=== PATIENT | male | born 1935 | race Caucasian/White ===

== ENCOUNTER 2016-12-30 08:11 | Inpatient (IN) | payer OTHER, MEDICARE ==
[~2016-12-30] VITALS: Ht 175.3 cm; Wt 65.4 kg
--- NOTE | ~2016-12-30 | H ---
[facility] [place] [address] HISTORY AND PHYSICAL Name: GEORGE JAMES Room #: 210-P [facility] IN M.R.#: [id number] Admission: 12/30/16 Attend Phys: Sal Posey MD Discharge: Date of : 37 Report #: [id number] THIS REPORT FOR: //name// CC: Rich Posey DATE OF SERVICE: 12/30/2016 CHIEF COMPLAINT: Chest pain. HISTORY OF PRESENT ILLNESS: The patient is a 81-year-old male, who came to the ER with some left-sided chest pain that he had been having last night. It was intermittent, it is now gone. He had some nausea with it as well. He became short of air with activity. He does not have a history of prior LA, but he is diabetic and hypertensive and hyperlipidemic. He also takes aspirin daily. He had a stress test a couple years ago and a cath about 5 years ago. PAST MEDICAL HISTORY: Significant for: 1. Hypertension. 2. Hyperlipidemia. 3. Non-insulin diabetes mellitus. 4. Hiatal hernia. MEDICATIONS: Aspirin 81 mg a day, lisinopril 10 mg a day, Bystolic 5 mg a day, metformin 500 mg b.i.d., lovastatin 40 mg a day, Zyrtec 10 mg a day, Naprosyn p.r.n. ALLERGIES: No known drug allergies. SOCIAL HISTORY: Nonsmoker, occasional drinker. REVIEW OF SYSTEMS: CONSTITUTIONAL: No fever or chills. HEENT: No headaches or visual changes. CHEST: Per above. No cough or sputum induction. GASTROINTESTINAL: Nausea. No vomiting or diarrhea. GENITOURINARY: No burning or frequency. EXTREMITIES: No new complaints. PHYSICAL EXAMINATION: VITAL SIGNS: Blood pressure 109/64, pulse is 53, respiratory rate is 18. He is afebrile. GENERAL: He is awake and alert, in no acute distress. He has no chest pain at this time. HEENT: His mucous membranes are moist. NECK: Supple, no adenopathy, thyromegaly or bruits. [facility] [address] [place] [address] HISTORY AND PHYSICAL Name: GEORGE JAMES Sumaya Room #: 210-P [facility] IN ..#: [id number] Admission: 12/30/16 Attend Phys: Sal Posey MD Discharge: Date of : 37 Report #: [id number] CHEST: Clear to auscultation. CARDIOVASCULAR: Regular, without murmur. ABDOMEN: Soft, no masses. Bowel sounds are active. EXTREMITIES: Show no edema. Pulses are intact. SKIN: Intact. NEUROLOGIC: Motor and sensory are intact. EKG: Sinus rhythm, rate of 62, no ST segment changes. PRELIMINARY LABS: His creatinine is 2.2, WBCs are 7.1, hemoglobin 12.4, hematocrit 36.5, platelet count 202, sodium 139, potassium 5.4, chloride 108, BUN 44, again creatinine 2.2, glucose 109, troponin less than 0.04. ASSESSMENT AND PLAN: Chest pain, certainly concerning with his wrist fractures, but with his elevated creatinine it is difficult to take him through the cath. We will monitor serial enzymes. We will start him on some IV fluids and we will recheck in the morning. I have consulted cardiology, planning a stress echo tomorrow morning. Resume his home meds except for the metformin. By: 0959 1312 Sal Posey MD /nt
--- NOTE | ~2016-12-30 | EKG ---
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
--- NOTE | ~2016-12-30 | 2DMMODE ---
[facility] [place] [address] 2 D/M-MODE ECHOCARDIOGRAM Name: JAMESGEORGE Room #: 210-P [facility] IN ..#: [id number] Admission: 12/30/16 Attend Phys: Sal Posey, Discharge: Date of : 37 Date of Service: 12/30/16 1702 Report #: [id number] THIS REPORT FOR: //name// APPROVED REPORT Study performed: 12/30/2016 15:13:20 EXAM: Comprehensive 2D, Doppler, and color-flow Echocardiogram Patient Location: Echo lab Room #: 210 Blood Pressure: 139/49 mmHg HR: 59 bpm Rhythm: NSR Other Information Study Quality: Adequate/Fair parasternal window. Indications Chest Pain Hx: HTN, HLP, DM 2D Dimensions RVDd: 32.41 mm LVEF(%): 65.67 (>50%) IVSd: 10.92 (7-11mm) LVOT Diam: 19.98 (18-24mm) LVDd: 51.60 mm PWd: 10.41 (7-11mm) Ascending Ao: 34.05 (22-36mm) LVDs: 32.86 (25-40mm) Aortic Root: 37.32 mm Brown's LVEF: 65.67 % Volumes Left Atrial Volume (Systole) Single Plane 4CH: 43.83 mL Single Plane 2CH: 51.94 mL LA ESV Index: 27.00 mL/m2 Aortic Valve AoV Peak Wilton.: 2.25 m/s AO Peak Gr.: 20.28 mmHg LVOT Max P.06 mmHg AO Mean Gr.: 10.97 mmHg AO V2 Mean: 1.58 m/s LVOT Max V: 1.01 m/s AO V2 VTI: 56.87 cm PHI Vmax: 1.40 cm2 [facility] [place] [address] 2 D/M-MODE ECHOCARDIOGRAM Name: GEORGE JAMES Room #: 210-P [facility] IN ..#: [id number] Admission: 12/30/16 Attend Phys: Sal Posey, Discharge: Date of : 37 Date of Service: 12/30/16 1702 Report #: [id number] Vmax: 4.22 m/s AI Jenkins: 2.84 m/s2 AI PHT: 430.74 ms Mitral Valve E/A Ratio: 0.6 MV Decel. Time: 260.60 ms MV E Max Wilton.: 0.71 m/s MV A Wilton.: 1.16 m/s MV PHT: 75.58 ms Pulmonary Valve PV Peak Wilton.: 0.96 m/s PV Peak Gr.: 3.72 mmHg Pulmonary Vein P Vein S: 0.66 m/s P Vein A: 0.34 m/s P Vein D: 0.33 m/s P Vein A Dur.: 106.1 msec P Vein S/D Ratio: 2.00 Tricuspid Valve TR Peak Wilton.: 2.43 m/s RAP Estimate: 5.00 mmHg TR Peak Gr.: 23.70 mmHg RVSP: 29.00 mmHg Left Ventricle The left ventricle is normal size. Hypokinesis involving base of inferior wall There is normal left ventricular wall thickness. Left ventricular systolic function is normal. LVEF is 50-55%. Grade I - abnormal relaxation pattern. Right Ventricle The right ventricle is normal size. The right ventricular systolic function is normal. Atria The left atrium size is normal. The right atrium size is normal. Aortic Valve Aortic valve is moderately calcified. The aortic valve is not well visualized. Mild to moderate aortic regurgitation. Mild aortic stenosis. Mitral Valve Mild mitral annular calcification. Mild mitral regurgitation. No evidence of mitral valve stenosis. [facility] [address] [place] [address] 2 D/M-MODE ECHOCARDIOGRAM Name: GEORGE JAMES Room #: 210-P [facility] IN [facility]#: [id number] Admission: 12/30/16 Attend Phys: Sal Posey, Discharge: Date of : 37 Date of Service: 12/30/16 1702 Report #: [id number] Tricuspid Valve The tricuspid valve is normal in structure. There is trace tricuspid regurgitation. The right atrial pressure is estimated at 5 mmHg. Estimated PAP is 29mmHg. Pulmonic Valve The pulmonary valve is normal in structure. Trace pulmonic regurgitation. Great Vessels Aortic root is borderline dilated. The ascending aorta is normal in size. IVC is normal in size and collapses >50% with inspiration. Pericardium There is no pericardial effusion. <Conclusion> Left ventricular systolic function is normal. Hypokinesis involving base of inferior wall LVEF is 50-55%. Grade I diastolic dysfunction Aortic valve is moderately calcified. The aortic valve is not well visualized. Mild to moderate aortic regurgitation. Mild aortic stenosis. Mild mitral annular calcification. Trace mitral insufficiency Pulmonary artery pressure could not be reliably ascertained There is no pericardial effusion. <ELECTRONICALLY SIGNED> By: Raghavendra Escudero MD, FACC 12/30/161701 01 01 Raghavendra Escudero MD, FACC /INF
[~2016-12-30 08:11] MED LIST: ALEVE220 MG PO; ASPIRIN325 PO; BYSTOLIC 5 MG5 M1 PO; GLUCOPHAGE500 MG PO; LIPITOR10 MG PO; LISINOPRIL10 MG PO; LOVASTATIN 20 M20 MG PO; METFORMIN HCL500 MG PO; MULTIVITAMINS PO; NABUMETONE 500500 M1 PO; OMEPRAZOLE40 MG PO; ZYRTEC10 MG PO
[2016-12-30 08:19] VITALS: BP 109/64
[2016-12-30] MEDS ORDERED: ASPIR 8181 MG PO (08:22)
[2016-12-30 08:37] LABS: ABSOLUTE NEUTROPHILS 3.7 thou/uL (1.4-8.2); BASOPHILS 2.5 % (0.0-2.0); EOSINOPHILS 18.8 % (0.0-3.0); HEMATOCRIT 36.5 % (42.0-52.0); HEMOGLOBIN 12.4 gm/dL (14.0-18.0); LYMPHOCYTES 16.8 % (24.0-44.0); MCH 30.3 pg (26.0-34.0); MCHC 33.9 g/dL (28.0-37.0); MCV 89.3 fL (80.0-100.0); MONOCYTES 9.7 % (1.0-8.0); PLATELET COUNT 202 thou/uL (150-400); POLYS 52.2 % (36.0-66.0); RBC 4.08 mil/uL (4.50-6.00); WBC 7.1 thou/uL (4.0-11.0)
[2016-12-30 08:40] LABS: MANUAL DIFF NO
[2016-12-30 08:48] LABS: ANION GAP 8 mmol/L (7-16); BUN 44 mg/dL (7-18); CALCIUM 9.1 mg/dL (8.5-10.1); CHLORIDE 108 mmol/L (98-107); CO2 23 mmol/L (21-32); CREATININE 2.2 mg/dL (0.7-1.3); GLUCOSE 109 mg/dL (74-106); POTASSIUM 5.4 mmol/L (3.5-5.1); SODIUM 139 mmol/L (136-145)
[2016-12-30 08:59] LABS: TROPONIN-I < 0.04 ng/mL (<0.04-0.07)
[2016-12-30 09:56] VITALS: BP 126/55
[2016-12-30 10:16] VITALS: BP 139/49
[2016-12-30 16:42] VITALS: BP 142/48
[2016-12-30 19:39] VITALS: BP 143/64
[2016-12-30 23:14] VITALS: BP 120/58
[2016-12-31 03:59] LABS: CALCIUM 8.6 mg/dL (8.5-10.1); CREATININE 1.9 mg/dL (0.7-1.3); POTASSIUM 4.8 mmol/L (3.5-5.1)
[2016-12-31 04:05] LABS: CHOLESTEROL 139 mg/dL (<200); HDL CHOLESTEROL 35 mg/dL (>40); LDL CHOLESTEROL 74 mg/dL (<100); TRIGLYCERIDE 153 mg/dL (<150); VLDL 31 mg/dL (<40)
[2016-12-31 04:06] LABS: SERUM ASSESSMENT Clear
[2016-12-31 04:14] VITALS: BP 144/61
[2016-12-31 08:00] VITALS: BP 147/70
[2016-12-31 09:34] VITALS: BP 147/70
== END 2016-12-31 09:50 | disposition home or self-care (01) | DRG 392 ==
LOC: ER 08:11 → 2N 09:30 → EROBS 09:30 → 2N 09:59
PROVIDERS: Emergency Medicine; Family Medicine; Internal Medicine Cardiovascular Disease
DX: K21.9 Gastro-esophageal reflux disease without esophagitis (principal); N17.9 Acute kidney failure, unspecified; R07.9 Chest pain, unspecified; E11.22 Type 2 diabetes mellitus with diabetic chronic kidney disease; I12.9 Hypertensive chronic kidney disease with stage 1 through stage 4 chronic kidney disease, or unspecified chronic kidney disease; E78.5 Hyperlipidemia, unspecified; N18.9 Chronic kidney disease, unspecified; Z79.82 Long term (current) use of aspirin; Z79.899 Other long term (current) drug therapy; Z87.11 Personal history of peptic ulcer disease
CPT/HCPCS: 10081

== ENCOUNTER 2017-09-14 15:32 | Inpatient (IN) | payer OTHER, MEDICARE ==
[~2017-09-14 15:32] MED LIST changes: +ASPIR 8181 MG PO
[2017-09-14 16:53] LABS: HEMATOCRIT 33.7 % (42.0-52.0); HEMOGLOBIN 11.4 gm/dL (14.0-18.0); MCH 30.6 pg (26.0-34.0); RBC 3.74 mil/uL (4.50-6.00); RDW 13.3 % (10.5-14.5); WBC 7.5 thou/uL (4.0-11.0)
[2017-09-14 17:08] VITALS: BP 157/70
[2017-09-14 17:17] LABS: APTT 27.8 Seconds (24.5-32.8); D-DIMER 4.15 ug/mLFEU (0.19-0.50); INR 1.1
[2017-09-14 17:34] LABS: CALCIUM 8.7 mg/dL (8.5-10.1); POTASSIUM 4.1 mmol/L (3.5-5.1)
[2017-09-14 20:18] VITALS: BP 166/75
[2017-09-15 03:21] VITALS: BP 145/72
[2017-09-15 07:29] VITALS: BP 143/68
[2017-09-15 15:27] VITALS: BP 130/70
[2017-09-15 20:35] VITALS: BP 145/68
[2017-09-16 04:45] VITALS: BP 143/69
[2017-09-16 12:00] VITALS: BP 131/63
[2017-09-16] MEDS ORDERED: XARELTO15 MG PO (12:16)
[2017-09-16 12:59] VITALS: BP 143/68
[2018-03-21] MEDS ORDERED: LOVASTATIN 20 M20 MG PO (15:04)
[2018-03-21] MEDS ORDERED: PREDNISONE 20 M20 MG PO (15:05)
== END 2017-09-16 13:20 | disposition home or self-care (01) | DRG 300 ==
LOC: 2N 15:32 → ENTRNSPT 09-16 13:06 → EDTRNSPTSTS 09-16 13:19 → 2N 09-16 13:20
PROVIDERS: Nurse Practitioner Adult Health
DX: I82.431 Acute embolism and thrombosis of right popliteal vein (principal); I42.9 Cardiomyopathy, unspecified; I25.10 Atherosclerotic heart disease of native coronary artery without angina pectoris; I35.0 Nonrheumatic aortic (valve) stenosis; I10 Essential (primary) hypertension; E78.5 Hyperlipidemia, unspecified; Z90.49 Acquired absence of other specified parts of digestive tract
CPT/HCPCS: 10797

== ENCOUNTER → 2018-01-26 | Outpatient (CLI) | payer OTHER, MEDICARE ==
[~2018-01-26] MED LIST changes: +XARELTO15 MG PO
== END ==
LOC: ULTRA 14:47
DX: M79.605 Pain in left leg (principal); R60.0 Localized edema

== ENCOUNTER 2018-03-13 01:35 | Inpatient (IN) | payer OTHER, MEDICARE ==
[~2018-03-13] VITALS: Ht 175.3 cm; Wt 72.5 kg
[2018-03-13] VITALS (7 sets, daily range): BP systolic 141–176; BP diastolic 74–93
--- NOTE | ~2018-03-13 | EKG ---
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 : 1935 Requested By: Sal Posey Order Number: [id number] MD: Raghavendra Escudero Measurements Intervals [place] Rate: 101 P: 69 [place]: 188 QRS: 39 QRSD: 105 T: 208 QT: 358 QTc: 465 Interpretive Statements Sinus tachycardia Inferior infarct, old ST and T wave abnormality, consider lateral ischemia versus repolarization abnormality No previous ECGs available for comparison Electronically Signed On 03-13-2018 13:56:41 CDT by Raghavendra Escudero [email or web address] <ELECTRONICALLY SIGNED> By: Raghavendra Escudero MD, [facility] 03/13/18 1356 4 4 Raghavendra Escudero MD, [facility] /EPI
--- NOTE | ~2018-03-13 | HC ---
[facility] [place] [address] CONSULTATION Name: GEORGE JAMES Room #: [facility] IN M.R.#: [id number] Admission: 03/13/18 Attend Phys: Sal Posey MD Discharge: Date of : 37 Report #: [id number] THIS REPORT FOR: //name// CC: Norma Posey CHIEF COMPLAINT: Left hydronephrosis. HISTORY OF PRESENT ILLNESS: The patient is a very pleasant 82-year-old gentleman who is being seen today at the request of Dr. Posey and Dr. Darby for left hydronephrosis. He presented to the hospital with shortness of breath and was noted to have an elevated creatinine. He denies urgency, frequency or dysuria. Upon reviewing the record, there are reports of bladder tumor resections x 3; however, he denies any knowledge of this. He denies difficulties voiding at the present time. ALLERGIES: None. ILLNESSES: Diabetes, hyperlipidemia, coronary artery disease, DVT, possible bladder tumor, chronic kidney disease. SOCIAL HISTORY: Former smoker. No alcohol. FAMILY HISTORY: Parents had coronary artery disease. HOME MEDICATIONS: Metformin, lisinopril, Bystolic, lovastatin, Pepcid. REVIEW OF SYSTEMS: He denies shortness of breath or chest pain. PHYSICAL EXAMINATION: GENERAL: He is a comfortable appearing gentleman, lying in bed. VITAL SIGNS: Temperature 36.4, pulse 68, respirations 18, blood pressure 121/61. There is no respiratory distress. ABDOMEN: Soft, without masses. GENITOURINARY: He has a normal circumcised phallus with no acute scrotal pathology. LABORATORY DATA: White count 11,400, hemoglobin is 12.1, hematocrit is 35.8, platelets 257,000. Sodium 137, potassium 3.9, chloride 99, CO2 of 26, BUN 71, creatinine 3.6, glucose 171. Urine is clear, yellow, specific gravity is 1.010, pH is 5. Microscopic, 11-20 red cells, 0-5 white cells. Renal ultrasound shows moderate left hydronephrosis with normal echogenicity of renal parenchyma. IMPRESSION: Left hydronephrosis, microhematuria. PLAN: Obtain a noncontrast CT scan to see if further history could be obtained [address] [address] CONSULTATION Name: GEORGE JAMES Room #: 205-P [facility] IN .R.#: [id number] Admission: 03/13/18 Attend Phys: Sal Posey MD Discharge: Date of : 37 Report #: [id number] from the family. We will follow with you. Also, we will check postvoid residual. <ELECTRONICALLY SIGNED> By: Real Adam MD 03/16/18 0645 0730 0919 Real Adam MD /nt
--- NOTE | ~2018-03-13 | HC ---
[facility] [place] [address] CONSULTATION Name: GEORGE JAMES Sumaya Room #: 205-P [facility] IN .R.#: [id number] Admission: 03/13/18 Attend Phys: Sal Posey MD Discharge: Date of : 37 Report #: [id number] THIS REPORT FOR: //name// CC: Norma Posey DATE OF SERVICE: 03/13/2018 HISTORY OF PRESENT ILLNESS: The patient is an 82-year-old gentleman who is a patient of deanne Posey and Aminata. He has a history of coronary artery disease with mild left ventricular dysfunction with an ejection fraction of 45%-50%. His history also includes diabetes, mild aortic stenosis, hypertension, dyslipidemia, prior DVT for which he is anticoagulated with Xarelto and advanced kidney disease. The patient now presents with increasing shortness of breath and lower extremity edema. He reports orthopnea and paroxysmal nocturnal dyspnea all over the past day or so. No chest heaviness or pressure. He presented to the Emergency Department where he was found to be in congestive heart failure. No history of palpitations. Denies bleeding problems with Xarelto. His coronary artery disease is notable for mild calcification of the LAD and circumflex with a 40-50% ostial LAD stenosis. The right coronary is occluded and filled by collateralization and moderate disease in the marginal branch, which is nondominant. Due to advancing kidney failure, he has an appointment with a electric accounting machine operator this upcoming Wednesday. MEDICATIONS: Include metformin 500 mg daily, aspirin 81 mg daily, Pepcid 20 mg daily, lisinopril 10 mg daily, Bystolic 10 mg daily, lovastatin 20 mg daily. PAST MEDICAL HISTORY: His past history and medical records have been reviewed, include history of prior tobacco dependency, coronary artery disease, mild ischemic cardiomyopathy, mild aortic stenosis, dyslipidemia, hypertension. SOCIAL HISTORY: He is a former smoker. . FAMILY HISTORY: Notable for parents with coronary artery disease. REVIEW OF SYSTEMS: All systems negative except as that noted above. PHYSICAL EXAMINATION: GENERAL: Reveals a pleasant gentleman, in moderate distress. VITAL SIGNS: Blood pressure is 166/82, heart rate 90 and regular. He is afebrile, 5 feet 9 inches tall, 166 pounds. His weight in August was 155 pounds. HEENT: There are neither xanthelasma, subcutaneous xanthomata, oral mucosal or [facility] [address] [place] [address] CONSULTATION Name: GEORGE JAMES Room #: 205-P [facility] IN [facility]#: [id number] Admission: 03/13/18 Attend Phys: Sal Posey MD Discharge: Date of : 37 Report #: [id number] digital cyanosis or kyphoscoliosis present. CHEST: Reveals diffuse rales with a prolonged expiratory phase. CARDIAC: Distant regular rate and rhythm with a 1-2/6 systolic ejection murmur at the base. ABDOMEN: Soft and nontender. EXTREMITIES: With 1+ edema. Radial pulses are 2+. NEUROLOGIC: He is alert with a nonfocal exam. LABORATORY DATA: Sodium 140, potassium 4.8, creatinine 2.6. ProBNP of 1930. Troponin is 0.08. White count 11.4, hemoglobin 12, hematocrit 35, platelet count 257. Chest x-ray demonstrates congestive heart failure. EKG, sinus rhythm, LVH with repolarization abnormality. IMPRESSION: 1. Hffwp-et-afisuak diastolic heart failure. Ejection fraction 45-50%. 2. Acute kidney injury on chronic kidney disease, stage 3-4. 3. Diabetes. 4. History of deep venous thrombosis. 5. Coronary artery disease. 6. Szhq-bv-ocsczxrc aortic stenosis. 7. Hypertension. 8. Hypercoagulable. RECOMMENDATIONS: 1. IV Lasix. 2. Echocardiogram with Doppler. 3. Renal ultrasound, postvoid residual. Renal consultation. 4. Salt restricted diet recommended. Further thoughts will be forthcoming based on this evaluation. Thank you for asking me to participate in this patient's care. <ELECTRONICALLY SIGNED> By: Raghavendra Escudero MD, FACC 03/15/18 1257 0837 1355 Raghavendra Escudero MD, FACC /nt
--- NOTE | ~2018-03-13 | HC ---
[facility] [place] [address] CONSULTATION Name: GEORGE JAMES Room #: 205-P [facility] IN M.R.#: [id number] Admission: 03/13/18 Attend Phys: Sal Posey MD Discharge: Date of : 37 Report #: [id number] THIS REPORT FOR: //name// CC: Norma Posey REASON FOR CONSULTATION: Acute kidney injury. REASON FOR PRESENTATION: Shortness of breath. HISTORY OF PRESENT ILLNESS: An 82-year-old with past medical history of coronary artery disease, hypertension, hyperlipidemia, diabetes mellitus, DVT. He presented with shortness of breath that began abruptly while asleep. This was associated with cough and chest pain. He describes the chest pain as midsternal. He denies any associated fever or chills. No diaphoresis associated with his presentation. He came to further evaluate his symptoms and was admitted accordingly. He has history of bladder tumor resection x 3. When he presented yesterday, he was found to have an elevated creatinine with what seems to be pulmonary edema on the chest x-ray. Diuresis was begun. I am being asked to evaluate his chronic kidney disease. He was noticed also to have hydronephrosis. He was on lisinopril. He was taking almost every other day doses of nonsteroidal anti-inflammatory medications in the form of Aleve. PAST MEDICAL HISTORY: 1. Diabetes mellitus. 2. Hyperlipidemia. 3. Coronary artery disease. 4. DVT. 5. Bladder tumor resection x 3. 6. Chronic kidney disease. SOCIAL HISTORY: Former smoker. No drug or alcohol abuse. FAMILY HISTORY: Parents with coronary artery disease. MEDICATIONS: 1. Metformin. 2. Lisinopril. 3. Bystolic. 4. Lovastatin. 5. Pepcid. Of note is the fact that he was recently seen by his bonding machine setter, and there had been some changes of his medications including holding his lisinopril, metformin, Demadex. REVIEW OF SYSTEMS: [facility] [address] [place] [address] CONSULTATION Name: GEORGE JAMES Room #: 205-[facility] IN ..#: [id number] Admission: 03/13/18 Attend Phys: Sal Posey MD Discharge: Date of : 37 Report #: [id number] GENERAL: No fever or chills. CARDIOVASCULAR: As per the history of present illness. PULMONARY: No cough or hemoptysis, but significant for shortness of breath. GASTROINTESTINAL: No nausea or vomiting. GENITOURINARY: No frequency, no urgency. MUSCULOSKELETAL: No back pain, no morning stiffness: PHYSICAL EXAMINATION: GENERAL: Alert, oriented, in no apparent distress. VITAL SIGNS: Temperature 36.4, blood pressure 128/62. HEAD AND NECK: No jugular venous distention, no bruit, no thyromegaly. CHEST: Decreased air entry bilaterally. CARDIOVASCULAR: No rub detected. ABDOMEN: Soft, nontender. LOWER EXTREMITIES: No edema. LABORATORY DATA: Reviewed. Creatinine is up to 3.2, repeat is down to 3.1. Creatinine from yesterday was 2.6. Most recent creatinine in 2017 was in the 1.9-2.0 range. No UA is available. Chest x-ray reviewed. There is mild pulmonary edema. Ultrasound reviewed, mild hydronephrosis. ASSESSMENT, IMPRESSION AND PLAN: 1. Acute kidney injury. 2. Chronic kidney disease. 3. Coronary artery disease. 4. Hypertension. 5. Aortic stenosis. 6. Volume status is much better. We will discontinue the Lasix drip. 7. He has so many confounding issues contributing to his acute kidney injury including nonsteroidal anti-inflammatory medications usage, hydronephrosis on the left side. 8. I agree with the urology consultation given his bladder tumor history. 9. Initiate chronic kidney disease workup as he was supposed to see Dr. Steen in the next few days. 10. Continue to hold metformin, torsemide, angiotensin converting enzyme inhibitor at this point. 11. Cardiac workup in progress. 12. Avoid nonsteroidal anti-inflammatory medications. 13. We will continue to follow along. By: 0928 1314 Kailey Leal MD /nt
--- NOTE | ~2018-03-13 | EKG ---
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 : 1935 Requested By: Sal Posey Order Number: [id number] MD: Raghavendra Escudero Measurements Intervals [place] Rate: 82 P: 32 [place]: 191 QRS: 12 QRSD: 101 T: 179 QT: 387 QTc: 452 Interpretive Statements Sinus rhythm LVH with secondary repolarization abnormality Inferior infarct, old Compared to ECG 03/13/2018 01:49:13 No significant changes Electronically Signed On 03-14-2018 8:18:45 CDT by Raghavendra Escudero [email or web address] <ELECTRONICALLY SIGNED> By: Raghavendra Escudero MD, [facility] 03/14/18 0818 0 0 Raghavendra Escudero MD, [facility] /EPI
--- NOTE | ~2018-03-13 | EKG ---
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 : 1935 Requested By: Jeffery Clarke Order Number: [id number] MD: Raghavendra Escudero Measurements Intervals [place] Rate: 90 P: 59 TN: 210 QRS: 25 QRSD: 101 T: 184 QT: 376 QTc: 460 Interpretive Statements Sinus rhythm Probable LVH with secondary repol abnrm Inferior infarct, old Compared to ECG 12/30/2016 08:24:13 Repolarization abnormality is more pronounced Electronically Signed On 03-13-2018 13:52:30 CDT by Raghavendra Escudero [email or web address] <ELECTRONICALLY SIGNED> By: Raghavendra Escudero MD, [facility] 03/13/18 1352 0149 0149 Raghavendra Escudero MD, [facility] /EPI
--- NOTE | ~2018-03-13 | 2DMMODE ---
[facility] [place] [employer] [place] [address] 2 D/M-MODE ECHOCARDIOGRAM Name: GEORGE JAMES Room #: 205-P [facility] IN ..#: [id number] Admission: 03/13/18 Attend Phys: Sal Posey, Discharge: Date of : 39 Date of Service: 03/14/18 1249 Report #: [id number] THIS REPORT FOR: //name// APPROVED REPORT Study performed: 03/14/2018 09:37:22 EXAM: Comprehensive 2D, Doppler, and color-flow Echocardiogram Patient Location: Echo lab Room #: [facility] Status: routine BSA: 1.88 HR: 75 bpm BP: 128/62 mmHg Rhythm: NSR Other Information Study Quality: Adequate Indications Short of breath, CHF. Hx: CAD, HTN, HLP, DM 2D Dimensions RVDd: 28.56 mm LVEF(%): 43.94 (>50%) IVSd: 13.87 (7-11mm) LVOT Diam: 21.33 (18-24mm) LVDd: 45.54 mm PWd: 10.06 (7-11mm) Ascending Ao: 34.03 (22-36mm) LVDs: 35.69 (25-40mm) Aortic Root: 35.77 mm Brown's LVEF: 43.94 % Volumes Left Atrial Volume (Systole) Single Plane 4CH: 34.11 mL Single Plane 2CH: 58.90 mL LA ESV Index: 26.00 mL/m2 Aortic Valve AoV Peak Wilton.: 2.38 m/s AO Peak Gr.: 22.63 mmHg LVOT Max P.01 mmHg AO Mean Gr.: 12.48 mmHg AO V2 Mean: 1.68 m/s LVOT Max V: 1.00 m/s AO V2 VTI: 43.48 cm PHI Vmax: 1.50 cm2 AI Vmax: 4.14 m/s AI Parmer: 2.58 m/s2 [facility] [place] [address] 2 D/M-MODE ECHOCARDIOGRAM Name: GEORGE JAMES Room #: 205-[facility].#: [id number] Admission: 03/13/18 Attend Phys: Sal Posey, Discharge: Date of : 39 Date of Service: 03/14/18 1249 Report #: [id number] AI PHT: 464.66 ms Mitral Valve E/A Ratio: 0.6 MV Decel. Time: 212.93 ms MV E Max Wilton.: 0.43 m/s MV A Wilton.: 0.78 m/s MV PHT: 61.75 ms IVRT: 101.50 ms Pulmonary Valve PV Peak Wilton.: 1.01 m/s PV Peak Gr.: 4.08 mmHg Pulmonary Vein P Vein S: 0.49 m/s P Vein D: 0.26 m/s P Vein S/D Ratio: 1.88 Tricuspid Valve TR Peak Wilton.: 2.23 m/s RAP Estimate: 5.00 mmHg TR Peak Gr.: 19.94 mmHg Left Ventricle The left ventricle is normal size. Mild septal hypertrophy is present. Left ventricular systolic function is mildly decreased. LVEF is 45%. Hypokinesis involving base of inferolateral and inferior richardson Mild diastolic dysfunction is present (impaired relaxation pattern). Right Ventricle The right ventricle is normal size. The right ventricular systolic function is normal. Atria The left atrium size is normal. The right atrium size is normal. Aortic Valve Aortic valve is moderately calcified. Mild to moderate aortic regurgitation. There is mild valvular aortic stenosis. Calculated aortic valve area is 1.5 cm2 with maximum pressure gradient of 23 mmHg and mean pressure gradient of 13 mmHg. Mitral Valve The mitral valve is normal in structure. Mild mitral regurgitation. No evidence of mitral valve stenosis. [facility] [address] [place] [address] 2 D/M-MODE ECHOCARDIOGRAM Name: GEORGE JAMES Room #: 205-P [facility] IN .R.#: [id number] Admission: 03/13/18 Attend Phys: Sal Posey, Discharge: Date of : 39 Date of Service: 03/14/18 1249 Report #: [id number] Tricuspid Valve The tricuspid valve is normal in structure. Trace tricuspid regurgitation. Estimated PAP is 25mmHg. Pulmonic Valve Pulmonic valve is not well visualized. Trace pulmonic regurgitation. Great Vessels The aortic root is normal in size. The ascending aorta is normal in size. IVC is normal in size and collapses >50% with inspiration. Pericardium There is no pericardial effusion. <Conclusion> Left ventricular systolic function is mildly decreased. LVEF is 45%. Hypokinesis involving base of inferolateral and inferior richardson Mild diastolic dysfunction is present (impaired relaxation pattern). Aortic valve is moderately calcified. Mild valvular aortic stenosis, mild-moderate insufficiency. Calculated aortic valve area is 1.5 cm2 with maximum pressure gradient of 23 mmHg and mean pressure gradient of 13 mmHg. The mitral valve is normal in structure. Mild mitral regurgitation. Trace tricuspid regurgitation. Estimated pulmonary artery pressure of 25mmHg. There is no pericardial effusion. <ELECTRONICALLY SIGNED> By: Raghavendra Escudero MD, FACC 03/14/18 1249 1249 1249 Raghavendra Escudero MD, FACC /INF
--- NOTE | ~2018-03-13 | EKG ---
[address] [place] [address] ELECTROCARDIOGRAM REPORT Name: GEORGE JAMES Room #: 205-P ADM IN M.R.#: [id number] Admission: 03/13/18 Attend Phys: Sal Posey MD Discharge: Date of : 39 Report #: [id number] THIS REPORT FOR: //name// [facility] Test Date: 2018-03-13 Test Time: 07:48:01 Pat Name: GEORGE JAMES Department: Room: [facility] Gender: M Cardiac Cath Technologist: PAOLO : 1935 Requested By: Jeffery Clarke Order Number: [id number] MD: Raghavendra Escudero Measurements Intervals [place] Rate: 104 P: 112 TN: 179 QRS: 154 QRSD: 106 T: -9 QT: 354 QTc: 466 Interpretive Statements Limb lead reversal recommend repeat tracing Sinus tachycardia Electronically Signed On 03-13-2018 13:55:00 CDT by Raghavendra Escudero [email or web address] <ELECTRONICALLY SIGNED> By: Raghavendra Escudero MD, [facility] 03/13/18 1355 0748 0748 Raghavendra Escudero MD, FACC /EPI
[2018-03-13] MEDS ORDERED: PEPCID20 MG PO (01:51)
[2018-03-13 02:01] LABS: ABSOLUTE NEUTROPHILS 7.1 thou/uL (1.4-8.2); BASOPHILS 2.1 % (0.0-2.0); EOSINOPHILS 12.1 % (0.0-3.0); HEMATOCRIT 35.8 % (42.0-52.0); HEMOGLOBIN 12.1 gm/dL (14.0-18.0); LYMPHOCYTES 17.5 % (24.0-44.0); MCH 30.1 pg (26.0-34.0); MCHC 33.7 g/dL (28.0-37.0); MCV 89.2 fL (80.0-100.0); MONOCYTES 5.5 % (1.0-8.0); PLATELET COUNT 257 thou/uL (150-400); POLYS 62.8 % (36.0-66.0); RBC 4.01 mil/uL (4.50-6.00); RDW 14.1 % (10.5-14.5); WBC 11.4 thou/uL (4.0-11.0)
[2018-03-13 02:05] LABS: CALCIUM 8.9 mg/dL (8.5-10.1); CREATININE 2.6 mg/dL (0.7-1.3); POTASSIUM 4.8 mmol/L (3.5-5.1)
[2018-03-13 02:13] LABS: ALBUMIN 3.8 g/dL (3.4-5.0); TOTAL BILIRUBIN 0.6 mg/dL (<0.1-1.0); TOTAL PROTEIN 8.1 g/dL (6.4-8.2); TROPONIN-I 0.08 ng/mL (<0.06)
[2018-03-13 03:19] LABS: INR 1.1; PROTIME 11.7 Seconds (9.3-11.4)
[2018-03-14 00:06] VITALS: BP 123/57
[2018-03-14 03:47] LABS: ALBUMIN 4.1 g/dL (3.4-5.0); CALCIUM 9.5 mg/dL (8.5-10.1); CREATININE 3.2 mg/dL (0.7-1.3); PHOSPHORUS 4.2 mg/dL (2.5-4.9); POTASSIUM 4.2 mmol/L (3.5-5.1)
[2018-03-14 03:53] VITALS: BP 111/60
[2018-03-14 08:14] VITALS: BP 128/62
[2018-03-14 08:34] LABS: CREATININE 3.1 mg/dL (0.7-1.3); POTASSIUM 4.4 mmol/L (3.5-5.1)
[2018-03-14 11:04] VITALS: BP 125/56
[2018-03-14 12:35] LABS: URINE BILIRUBIN NEGATIVE (Negative); URINE BLOOD 3+ (Negative); URINE CLARITY CLEAR; URINE COLOR YELLOW; URINE GLUCOSE-RANDOM* NEGATIVE (Negative); URINE KETONES NEGATIVE (Negative); URINE LEUKOCYTES NEGATIVE (Negative); URINE NITRITE NEGATIVE (Negative); URINE PROTEIN (DIPSTICK) NEGATIVE (Negative); URINE UROBILINOGEN 0.2 E.U./dl (0.2-1.0)
[2018-03-14 12:39] LABS: URINE CREATININE-RANDOM* 42.5 mg/dL; URINE PROTEIN-RANDOM* 13.3 mg/dL (<11.9)
[2018-03-14 13:11] LABS: SQUAMOUS None Seen /LPF (0-3); URINE WBC 0-5 Rare /HPF (0-5)
[2018-03-14 13:12] LABS: BACTERIA 1-9 Few /HPF (None Seen); CASTS None Seen /LPF (None Seen); CRYSTALS None Seen /LPF (None Seen)
[2018-03-14 15:10] VITALS: BP 128/54
[2018-03-14 20:21] VITALS: BP 121/58
[2018-03-15 03:39] LABS: CALCIUM 9.3 mg/dL (8.5-10.1); CREATININE 3.6 mg/dL (0.7-1.3); PHOSPHORUS 4.5 mg/dL (2.5-4.9); POTASSIUM 3.9 mmol/L (3.5-5.1)
[2018-03-15 05:30] VITALS: BP 121/61
[2018-03-15 08:03] VITALS: BP 126/58
[2018-03-15 11:28] VITALS: BP 133/58
[2018-03-15 16:11] VITALS: BP 147/67
[2018-03-15 19:36] VITALS: BP 140/63
[2018-03-16 03:14] LABS: HEMATOCRIT 36.9 % (42.0-52.0); HEMOGLOBIN 12.4 gm/dL (14.0-18.0); MCH 29.9 pg (26.0-34.0); MCHC 33.7 g/dL (28.0-37.0); MCV 88.6 fL (80.0-100.0); RBC 4.16 mil/uL (4.50-6.00); RDW 13.7 % (10.5-14.5); WBC 13.1 thou/uL (4.0-11.0)
[2018-03-16 03:26] LABS: ALBUMIN 3.7 g/dL (3.4-5.0); CALCIUM 8.9 mg/dL (8.5-10.1); CREATININE 3.4 mg/dL (0.7-1.3); PHOSPHORUS 4.5 mg/dL (2.5-4.9); POTASSIUM 3.6 mmol/L (3.5-5.1)
[2018-03-16 04:50] VITALS: BP 145/77
[2018-03-16 07:47] VITALS: BP 129/76
[2018-03-16 09:18] VITALS: BP 129/76
[2018-03-16] MEDS ORDERED: DEMADEX10 MG PO (09:40)
[2018-03-16] MEDS ORDERED: ASPIR 8181 MG PO (09:42)
== END 2018-03-16 11:30 | disposition home or self-care (01) | DRG 280 ==
LOC: ER 01:35 → EROBS 02:45 → 2N 02:45 → ENTRNSPT 03-16 10:56 → EDTRNSPTSTS 03-16 11:03 → 2N 03-16 11:30
PROVIDERS: Emergency Medicine; Hospitalist; Internal Medicine
DX: I13.0 Hypertensive heart and chronic kidney disease with heart failure and stage 1 through stage 4 chronic kidney disease, or unspecified chronic kidney disease (principal); I21.4 Non-ST elevation (NSTEMI) myocardial infarction; I50.23 Acute on chronic systolic (congestive) heart failure; N17.0 Acute kidney failure with tubular necrosis; N17.9 Acute kidney failure, unspecified; N18.4 Chronic kidney disease, stage 4 (severe); D68.59 Other primary thrombophilia; N13.1 Hydronephrosis with ureteral stricture, not elsewhere classified; I25.10 Atherosclerotic heart disease of native coronary artery without angina pectoris; E78.5 Hyperlipidemia, unspecified; E78.00 Pure hypercholesterolemia, unspecified; I25.5 Ischemic cardiomyopathy; E11.22 Type 2 diabetes mellitus with diabetic chronic kidney disease; I35.0 Nonrheumatic aortic (valve) stenosis; R31.29 Other microscopic hematuria; M25.50 Pain in unspecified joint; D49.4 Neoplasm of unspecified behavior of bladder; Z86.718 Personal history of other venous thrombosis and embolism; Z79.01 Long term (current) use of anticoagulants; Z79.899 Other long term (current) drug therapy; Z79.84 Long term (current) use of oral hypoglycemic drugs; Z79.82 Long term (current) use of aspirin; Z87.891 Personal history of nicotine dependence; Z82.49 Family history of ischemic heart disease and other diseases of the circulatory system
CPT/HCPCS: 10081

== ENCOUNTER 2018-03-23 05:37 | Day surgery (SDC) | payer OTHER, MEDICARE ==
[~2018-03-23] VITALS: Ht 177.8 cm; Wt 68.0 kg
--- NOTE | ~2018-03-23 | O ---
[facility] [place] [address] OPERATIVE REPORT Name: GEORGE JAMES Room #: DEP [facility].#: [id number] Admission: 03/23/18 Attend Phys: Real Adam MD Discharge: 03/23/18 Date of : 39 Report #: [id number] THIS REPORT FOR: //name// CC: Real Posey MD PREOPERATIVE DIAGNOSIS: Bilateral hydronephrosis and history of bladder tumor. POSTOPERATIVE DIAGNOSIS: Right ureterovesical reflux, recurrent bladder tumor, unable to positively identify and cannulate the left ureteral orifice. PROCEDURE: Cystoscopy, right retrograde pyelogram, transurethral resection of bladder tumor and attempted cannulation of left ureteral orifice. SURGEON: Real Adam M.D. ANESTHESIA: General. INDICATIONS: The patient is a very pleasant 82-year-old gentleman who has history of bladder cancer, recurrent bladder cancer. He was lost to follow up for about the last 3 years. He presented with bilateral hydronephrosis. He is admitted for an elevated creatinine. He is admitted for further evaluation. I have discussed risks, benefits, complications and intentions and the family understand complications could occur which I cannot not necessarily predict. SURGICAL PROCEDURE: After introduction of appropriate general anesthetic, he was prepped and draped in the lithotomy position by the operating personnel under anesthesia supervision. Preliminary fluoroscopic images showed no obvious abnormalities overlying either renal shadow. A 22-Serbian Olympus cystoscope was introduced under direct vision. The anterior urethra was normal. The prostatic urethra was short and nonobstructive with mild hyperplasia. Upon entering the bladder, there was a gaping right ureteral orifice, which was easily identified, a papillary tumor on the anterior bladder wall and one on the right bladder wall. The one on the anterior bladder wall was pinpoint and one on the right bladder wall estimated to be about 2.5-3 cm. I cannulated the right ureteral orifice and injected contrast to confirm that this was a patulous ureteral orifice. He clearly ____ refluxing. I followed the trigone and on the left bladder wall, I saw scar tissue. I used both the 30 and a 70-degree lens. There were several ____, which possibly could have been the ureteral orifice. I used an angled Glidewire and a torque device, but was unable to really cannulate any of these ____ to confirm whether or not they were indeed the ureteral orifice. I then identified the tumor and I removed the tumor in pieces with the cold cup forceps to obtain an adequate specimen and then I fulgurated the base of the resection area thoroughly. He was then transferred. Hemostasis was [facility] [address] [place] [address] OPERATIVE REPORT Name: GEORGE JAMES Room #: DEP [facility] [place]..#: [id number] Admission: 03/23/18 Attend Phys: Real Adam MD Discharge: 03/23/18 Date of : 39 Report #: [id number]. The bladder was drained. He was transferred to the recovery room where he arrived in stable condition. The findings were shared with the family. By: 1204 0414 Real Adam MD /nt
--- NOTE | ~2018-03-23 | PATH ---
[facility] [address] [place] [address] PATHOLOGY RPT PROCEDURE Name: JAMESGEORGE Room #: DEP [facility].#: [id number] Admission: 03/23/18 Date of : 39 Discharge: 03/23/18 Report #: [id number] Path Case #: [id number] [facility] Accession Number: [id number] . 01 Material submitted: . BLADDER TUMOR . 01 Clinical history: . Bladder tumor . 02 Diagnosis: Bladder tumor, TURBT: - NON-INVASIVE HIGH GRADE PAPILLARY UROTHELIAL CARCINOMA. - No muscularis propria sampled / present. [facility]/03/25/2018 . 02 Comment: Co-review: Dr. Ashley Perez . (IUV:mml; 03/24/18) . 02 Electronically signed: . Kemi Graham MD, Pathologist NPI- [id number] . 01 Gross description: . The specimen is received in formalin, labeled "Tabitha, George, bladder tumor" and consists of multiple fragments of soft friable pink-norton tissue measuring 1.9 x 1.0 x 0.3 cm in aggregate which are entirely submitted in A1. (SDY; 03/23/2018) SYU/SYU . 02 Pathologist provided ICD-10: C67.9 . 02 CPT . 266779 Performed at: [address], [place] [id number] MD Abdelrahman Arzola MD Phone: [phone] Performed at: [address] [id number] MD Kemi Graham MD Phone: [phone]
[~2018-03-23 05:37] MED LIST changes: +DEMADEX10 MG PO; +PEPCID20 MG PO; +PREDNISONE 20 M20 MG PO
[2018-03-23 09:36] VITALS: BP 139/70
[2018-03-23 12:40] VITALS: BP 139/70
[2018-03-23 13:01] LABS: CALCIUM 9.4 mg/dL (8.5-10.1); POTASSIUM 4.8 mmol/L (3.5-5.1)
== END 2018-03-23 13:15 | disposition home or self-care (01) ==
LOC: OR 05:37 → TBA 05:38 → OR 13:15
PROVIDERS: Specialist
DX: C67.9 Malignant neoplasm of bladder, unspecified (principal); N13.30 Unspecified hydronephrosis; N13.70 Vesicoureteral-reflux, unspecified; I21.4 Non-ST elevation (NSTEMI) myocardial infarction; N17.9 Acute kidney failure, unspecified; E78.00 Pure hypercholesterolemia, unspecified; K21.9 Gastro-esophageal reflux disease without esophagitis; E11.22 Type 2 diabetes mellitus with diabetic chronic kidney disease; I13.0 Hypertensive heart and chronic kidney disease with heart failure and stage 1 through stage 4 chronic kidney disease, or unspecified chronic kidney disease; N18.3 Chronic kidney disease, stage 3 (moderate); I50.9 Heart failure, unspecified; Z98.890 Other specified postprocedural states; Z90.89 Acquired absence of other organs; Z86.718 Personal history of other venous thrombosis and embolism; Z79.82 Long term (current) use of aspirin; Z79.899 Other long term (current) drug therapy; Z87.891 Personal history of nicotine dependence
CPT/HCPCS: 50010; 50101; 51620; 56674; 62110; 62900; 64037; 70005

== ENCOUNTER → 2018-03-24 | Outpatient (CLI) | payer OTHER, MEDICARE | LOC: RAD 13:25 → NUC 13:25 | DX: N13.30 Unspecified hydronephrosis (principal); E11.9 Type 2 diabetes mellitus without complications; E78.00 Pure hypercholesterolemia, unspecified ==

== ENCOUNTER → 2018-07-26 | Outpatient (CLI) | payer OTHER, MEDICARE | LOC: ULTRA 13:22 | DX: I12.9 Hypertensive chronic kidney disease with stage 1 through stage 4 chronic kidney disease, or unspecified chronic kidney disease (principal); E11.22 Type 2 diabetes mellitus with diabetic chronic kidney disease; N18.3 Chronic kidney disease, stage 3 (moderate); N13.30 Unspecified hydronephrosis; E78.00 Pure hypercholesterolemia, unspecified; Z87.891 Personal history of nicotine dependence ==

== ENCOUNTER → 2018-08-01 | Outpatient (CLI) | payer OTHER, MEDICARE | LOC: MRI 10:29 | DX: M51.16 Intervertebral disc disorders with radiculopathy, lumbar region (principal); M48.07 Spinal stenosis, lumbosacral region; M25.78 Osteophyte, vertebrae; N13.4 Hydroureter; N13.30 Unspecified hydronephrosis ==

== ENCOUNTER → 2018-08-03 | Outpatient (CLI) | payer OTHER, MEDICARE | LOC: NUC 09:34 | DX: N13.30 Unspecified hydronephrosis (principal) ==

== ENCOUNTER → 2018-08-17 | Outpatient (CLI) | payer OTHER, MEDICARE ==
[~2018-08-17] VITALS: Ht 172.7 cm; Wt 75.8 kg
[~2018-08-17] MED LIST changes: +ACETAMINOPHEN-1 EAC1 PO; +MEDROLDOSEPACK PO; +TOPROL XL50 MG PO; +TRAMADOL 50 MG50 MG PO
[2018-08-17 09:16] VITALS: BP 147/56
--- NOTE | 2018-08-17 09:32 | NUR ---
Pain Clinic Assessment: 1. History of Osteoarthritis: SPINAL History of Rheumatoid Arthritis: NONE 2. Height: 5 ft. 8 in. 172.7 cm. Weight: 167.0 lb. oz. 75.751 kg. Patient's BMI: 25.4 3. Vital Signs: BP: 147/56 Pulse: 56 Resp: 14 Temp: 02 Sat: 97 ECG Mon: 4. Pain Intensity: 3 5. Fall Risk: Dizziness: N Needs help standing or walking: N Fallen in the last 3 months: Y Fall risk comments: FELL 3 MOS AGO. 6. Patient on Blood Thinner: XARELTO 7. History of Hypertension: Y 8. Opioid Therapy greater than 6 weeks: N Opiate Contract Signed: 9. Risk Assessment Tool Provided: 10. Functional Assessment Tool: 11. Recreational Drug Use: Never Drug Type: Tobacco Use: Former Smoker Tobacco Type: Amount or Packs/day: How Many Years: Alcohol Use: Yes Frequency: Special Occasions Quant:
--- NOTE | 2018-08-19 14:15 | HPC ---
[facility] [address] [place] [address] PAIN MANAGEMENT CONSULTATION Name: GEORGE JAMES Room #: REG [facility].#: [id number] Admission: 08/17/18 Attend Phys: Maryjane Whitmore MD Discharge: Date of : 39 Report #: [id number] THIS REPORT FOR: //name// CC: Maryjane Posey DATE OF SERVICE: 08/17/2018 CHIEF COMPLAINT: Left shoulder, back, left leg pain. HISTORY OF PRESENT ILLNESS: The patient is an 83-year-old gentleman who has been referred to the pain clinic for evaluation of back, shoulder and left hip pain. FOLLOWUP HISTORY: The patient is an 83-year-old gentleman who has been referred to the pain clinic for evaluation of pain. He has noticed this pain has been problematic since he fell. It involves his left hip as well as his shoulder and has been experiencing pain that radiates down the left side of his leg. He has tried Tylenol No. 3. He has not noticed any improvement with that medication. States that he fell about 3 months ago. When he fell, he landed on his left side. Notes that if he elevates his left leg, there is some improvement. States that he has been told that he has some narrowing in his back. He feels that the term spinal stenosis have been mentioned in the past. Describes his discomfort as continuous, cramping, aching, throbbing, sharp and rates it as a 7-8 at its worst. It can rise to the level of 2-3. He is unable to take nonsteroidal anti-inflammatory medications because of his kidneys. He is taking two 81 mg baby aspirin's daily. He had a clot in his leg in 08/2017. Since that time, he has been on Xarelto. ALLERGIES: No known drug allergies. CURRENT MEDICATIONS: Tylenol No. 3 one tablet q.6 hours p.r.n., Xarelto 15 mg, metoprolol XL 50 mg, Mevacor 20 mg, Demadex 10 mg. PAST MEDICAL HISTORY: 1. Coronary artery disease. 2. Diabetes mellitus, borderline. 3. Hypertension. 4. Hypercholesterolemia. 5. Ischemic cardiomyopathy/mild. 6. Pulmonary edema. 7. History of deep venous thrombosis. 8. Elevated creatinine level. 9. Transurethral resection of bladder tumor. 10. Non-ST elevated myocardial infarction. 11. Cancer of the bladder. [facility] [address] [place] [address] PAIN MANAGEMENT CONSULTATION Name: JACOBGEORGE Room #: REG CL Dejan#: [id number] Admission: 08/17/18 Attend Phys: Maryjane Whitmore MD Discharge: Date of : 39 Report #: [id number] 12. Aortic stenosis, 1.5 cm2. 13. Hiatal hernia. 14. Peptic ulcer. PAST SURGICAL HISTORY: 1. Transurethral resection of the bladder tumor. 2. Prostate surgery. 3. Tonsillectomy at age 23 years. 4. Cystoscopy for bladder tumor x 3. LABORATORY DATA: MRI of the lumbar spine dated 08/01/2018: 1. At L2-L3, there is very mild generalized disk bulging without significant change. There is no significant central canal or neural foraminal stenosis. 2. At L4-L5, there is a mild generalized disk osteophyte complex and posterior epidural lipomatosis resulting in mild to moderate unchanged central canal stenosis. There is mild facet arthropathy bilaterally. There is mild to moderate left and very mild right neural foraminal stenosis with minimal change. 3. At L4-L5, there is tiec-wc-xklyxlvr generalized disk osteophyte complex with ilix-az-nnfdzuaj central canal stenosis, essentially unchanged. There is moderate left and mild right facet arthropathy. There is moderate left and xuxb-vr-wheowcvb right neural foramen stenosis. 4. At L5-S1, there is no disk disease or central canal stenosis. There is severe right facet arthropathy with a right facet joint synovial cyst measuring 1 cm projecting into the posterior aspect of the thecal sac just inferior to the right lateral recess and inferior to the right S1 nerve root. This is new compared to the prior study. There is moderate to severe right neural foraminal stenosis with minimal change. There is no left neural foraminal stenosis. PAIN CLINIC ASSESSMENT/PQRS. 1. History of osteoarthritis. The patient has spinal stenosis. 2. Rheumatoid arthritis. The patient is not being treated for rheumatoid arthritis. 3. Height 5 feet 8 inches, weight 167 pounds, BMI is 25.4. 4. Vital Signs: Blood pressure 147/56, pulse 56, respiratory rate 14, room air saturation 97%. 5. Pain intensity 10. 6. Fall risk. The patient has not fallen. The patient fell about 3 months ago and has been part of the onset of his discomfort. 7. Blood thinner. The patient is on Xarelto for history of DVT. 8. Hypertension. The patient is being treated for hypertension. 9. Opioid is greater than 6 weeks. The patient is not on an opioid regimen. 10. Risk assessment tool . 11. Recreational drug use. The patient denies use of recreational drugs. 12. Tobacco: The patient is a former smoker. 13. Alcohol: The patient denies frequent use of alcoholic beverages, but does drink on occasion. [address] [address] PAIN MANAGEMENT CONSULTATION Name: GEORGE JAMES Room #: REG [facility]#: [id number] Admission: 08/17/18 Attend Phys: Maryjane Whitmore MD Discharge: Date of : 39 Report #: [id number] PHYSICAL EXAMINATION: GENERAL: The patient is a well-developed, well-nourished white male. Appears his stated age. He is alert, oriented x 3. Affect is appropriate. Speech is fluent. HEENT: Normocephalic, atraumatic. Extraocular eye muscles intact. Sclerae are nonicteric. Mucous membranes are moist. The patient has some decreased hearing. His is present, answers a number of questions and helps with the interview process. NECK: Without adenopathy or JVD. HEART: Regular rate. Could not appreciate a murmur. EXTREMITIES: Upper extremity muscle strength judged to be 5/5 for the major muscle groups. The patient has some soreness on the left hip area as well as left shoulder area. The patient without significant scoliosis, kyphosis or lordosis. He is able to rise on to his toes. Has pain and discomfort when present, it radiates down into the L4-L5 dermatomal distribution involving his left leg. Palpation in the left greater trochanteric area notes some trochanteric soreness as well as pain and discomfort in the area of the tensor fascia deepthi. The patient notes some improvement in his pain when he elevates his left leg. He notes some increased pain with prolonged standing in the low back area with pain that radiates down into his leg. IMPRESSION: 1. Pain in the left hip after a fall about 3 months ago, history of spinal stenosis with pain that is radiating down into the L4-L5 dermatomal distribution. 2. Coronary artery disease. 3. Diabetes mellitus, borderline. 4. Hypertension. 5. Hypercholesterolemia. 6. Ischemic cardiomyopathy/mild. 7. Pulmonary edema. 8. History of deep venous thrombosis. 9. Elevated creatinine level. 10. Transurethral resection of bladder tumor. 11. Non-ST elevated myocardial infarction. 12. Cancer of the bladder. 13. Aortic stenosis, 1.5 cm2. 14. Hiatal hernia. 15. Peptic ulcer. RECOMMENDATIONS: We discussed treatment options with the patient and his . Risks and benefits of epidural steroid injection were discussed. The patient will confer with Dr. Coates, that is his plumbing installer. He will see whether or not he is a candidate to decrease the Xarelto for a few days to undergo the injection. He will try tramadol 50 mg 1 p.o. q.4-6 hours p.r.[place] [address] PAIN MANAGEMENT CONSULTATION Name: GEORGE JAMES Room #: REG [facility] Dejan#: [id number] Admission: 08/17/18 Attend Phys: Maryjane Whitmore MD Discharge: Date of : 37 Report #: [id number] efficacy. The patient has been given a Medrol Dosepak to take in the interim. The patient states that he is taking two aspirin in the evening. The patient states that he will check with Dr. Coates to see whether or not he should stop one of the 81 mg tablets. He will follow up in the near future. We will consider an epidural steroid injection. Risks and benefits of the procedure were discussed. The patient will follow up at which time he will then undergo an epidural steroid injection. We would like to thank you for letting us participate in his care. We hope he continues to improve. <ELECTRONICALLY SIGNED> By: Maryjane Whitmore MD 08/19/18 1415 1238 1816 Maryjane Whitmore MD /nt
== END ==
LOC: PAIN 08:19
DX: M48.061 Spinal stenosis, lumbar region without neurogenic claudication (principal); M25.552 Pain in left hip; M54.5 Low back pain; I10 Essential (primary) hypertension; E78.00 Pure hypercholesterolemia, unspecified; J81.1 Chronic pulmonary edema; I25.10 Atherosclerotic heart disease of native coronary artery without angina pectoris; R79.89 Other specified abnormal findings of blood chemistry; I25.5 Ischemic cardiomyopathy; C67.9 Malignant neoplasm of bladder, unspecified; I21.4 Non-ST elevation (NSTEMI) myocardial infarction; K44.9 Diaphragmatic hernia without obstruction or gangrene; I35.0 Nonrheumatic aortic (valve) stenosis; K27.9 Peptic ulcer, site unspecified, unspecified as acute or chronic, without hemorrhage or perforation; Z86.718 Personal history of other venous thrombosis and embolism

== ENCOUNTER → 2020-02-26 | Outpatient (CLI) | payer OTHER, MEDICARE | LOC: SJCVC 12:09 | PROVIDERS: ATTEND Internal Medicine Cardiovascular Disease | DX: I11.9 Hypertensive heart disease without heart failure (principal); R94.31 Abnormal electrocardiogram [ECG] [EKG]; I25.10 Atherosclerotic heart disease of native coronary artery without angina pectoris; E78.00 Pure hypercholesterolemia, unspecified; I35.0 Nonrheumatic aortic (valve) stenosis; D68.59 Other primary thrombophilia; E11.9 Type 2 diabetes mellitus without complications; I10 Essential (primary) hypertension; Z79.899 Other long term (current) drug therapy; Z87.891 Personal history of nicotine dependence; Z86.718 Personal history of other venous thrombosis and embolism; Z86.79 Personal history of other diseases of the circulatory system ==

== ENCOUNTER → 2020-10-09 | Outpatient (CLI) | payer OTHER, MEDICARE | LOC: SJCVCIMAG 09-25 07:43 | PROVIDERS: ATTEND Internal Medicine Cardiovascular Disease | DX: I35.2 Nonrheumatic aortic (valve) stenosis with insufficiency (principal); I49.3 Ventricular premature depolarization; I49.1 Atrial premature depolarization; I25.10 Atherosclerotic heart disease of native coronary artery without angina pectoris; I12.9 Hypertensive chronic kidney disease with stage 1 through stage 4 chronic kidney disease, or unspecified chronic kidney disease; N18.9 Chronic kidney disease, unspecified; E78.5 Hyperlipidemia, unspecified; R53.83 Other fatigue ==

== ENCOUNTER → 2020-10-10 | Outpatient (CLI) | payer OTHER, MEDICARE | LOC: SJCVCIMAG 06:43 | PROVIDERS: ATTEND Internal Medicine Cardiovascular Disease | DX: I70.202 Unspecified atherosclerosis of native arteries of extremities, left leg (principal); N13.30 Unspecified hydronephrosis; E11.22 Type 2 diabetes mellitus with diabetic chronic kidney disease; I12.9 Hypertensive chronic kidney disease with stage 1 through stage 4 chronic kidney disease, or unspecified chronic kidney disease; N18.4 Chronic kidney disease, stage 4 (severe); I25.10 Atherosclerotic heart disease of native coronary artery without angina pectoris; I35.0 Nonrheumatic aortic (valve) stenosis; E78.00 Pure hypercholesterolemia, unspecified; D68.59 Other primary thrombophilia; R74.8 Abnormal levels of other serum enzymes; Z98.890 Other specified postprocedural states; Z79.82 Long term (current) use of aspirin; Z79.899 Other long term (current) drug therapy; Z86.79 Personal history of other diseases of the circulatory system; Z86.718 Personal history of other venous thrombosis and embolism; Z87.891 Personal history of nicotine dependence; Z82.49 Family history of ischemic heart disease and other diseases of the circulatory system ==